=== PATIENT | female | born 2000 | race Caucasian/White ===

== ENCOUNTER 2022-04-23 18:02 | Emergency (ER) | payer BC ==
[~2022-04-23] VITALS: Ht 175.3 cm; Wt 127.0 kg
[2022-04-23] MEDS ORDERED: ACET250T3 PO (18:43)
--- NOTE | 2022-04-23 19:15 | NUR ---
Patient is a/ox4, NAD noted
[2022-04-23 19:16] LABS: HEMATOCRIT 41.9 % (31.2-41.9); MEAN CORPUSCULAR HEMOGLOBIN 29.8 uug (24.7-32.8); MEAN CORPUSCULAR VOLUME 89.3 fL (75.5-95.3); PLATELET COUNT (AUTO) 325 K/uL (179-408)
[2022-04-23 19:41] LABS: CARBON DIOXIDE 23 mmol/L (21-32); CHLORIDE 106 mmol/L (98-107); GLUCOSE 84 mg/dL (74-106); POTASSIUM 3.9 mmol/L (3.5-5.1); UREA NITROGEN, BLOOD 11 mg/dL (7-18)
--- NOTE | 2022-04-23 20:37 | NUR ---
called [facility] ambulance for patient transportation to [place] for CT, as CT scan is down
--- NOTE | 2022-04-23 21:16 | NUR ---
[facility] unit #300 at bedside for patient tranportation for CT to [facility]
--- NOTE | 2022-04-23 21:24 | NUR ---
Patient taken to [facility] for CT via [facility] ambulance unit #[id number]
--- NOTE | 2022-04-24 04:33 | NUR ---
Patient discharged to home in stable condition. Written and verbal after care instructions given. Patient verbalizes understanding of instructions. Stressed follow up or return to ER for worsening s/s. Patient is a/ox4, NAD noted. Patient is able to walk with steady gait
[2022-04-24 08:18] VITALS: BP 132/78
== END 2022-04-24 08:19 | disposition home or self-care (01) ==
LOC: ER 18:02
DX: R42 Dizziness and giddiness (principal); E66.9 Obesity, unspecified; Z68.41 Body mass index [BMI] 40.0-44.9, adult; G93.2 Benign intracranial hypertension; Z79.899 Other long term (current) drug therapy
CPT/HCPCS: 36415; 70450; 71045; 84484; 85025; 85730; 93005; A4663